=== PATIENT | female | born 1975 | race Caucasian/White ===

== ENCOUNTER 2021-04-01 11:41 | Emergency (ER) | payer OTHER ==
[~2021-04-01 11:41] MED LIST: IBUPROFEN800 MG PO; NAPROSYN500 MG PO
[2021-04-01 12:34] LABS: HEMOGLOBIN 8.1 gm/dl (12.3-15.3); RED BLOOD COUNT 2.96 M/UL (4.00-5.10); WHITE BLOOD COUNT 5.8 K/UL (4.5-11.0)
[2021-04-01 13:18] LABS: BUN/CREATININE RATIO 10 (0-10)
== END 2021-04-01 12:15 | disposition expired ==
LOC: EDBD 11:41 → ER1 11:41
PROVIDERS: Emergency Medicine
DX: S09.90XA Unspecified injury of head, initial encounter (principal); S80.12XA Contusion of left lower leg, initial encounter; S80.11XA Contusion of right lower leg, initial encounter; V49.40XA Driver injured in collision with unspecified motor vehicles in traffic accident, initial encounter
CPT/HCPCS: 71045; 80053; 83605; 85025; 85610; 85730; 86850; 86900; 86901; 86920; 92950; 99285; G0480; J7030; P9016